=== PATIENT | female | born 1995 | race Caucasian/White ===

== ENCOUNTER 2025-03-27 17:15 | Emergency (ER) | payer OTHER, SELFPAY ==
--- NOTE | 2025-03-27 17:21 | ED_ITS ---
HPI - Headache General Chief Complaint: Headache Stated Complaint: headache Time Seen by Provider: 03/27/25 17:30 Source: patient Mode of arrival: ambulatory Limitations: no limitations History of Present Illness HPI Narrative: Cristela is a 30-year-old female patient presenting to the clinic today with complaints of a 3 day headache. She reports it is a pressure/band like pain across the forehead/temples. Does reports she has had some increase in stress as her has been gone over the weekend with [employer]. Has been taking Excedrin with some relief but the headaches return. Last dose of Excedrin was this morning. Currently rates her pain a 6/10. States she commonly gets headaches however this is not her usual headache. Does endorse some photosensitivity and has had 2 episodes of nausea and vomiting. Denies any URI symptoms or sore throat. Last menstrual period was December-patient has IUD. Related Data Home Medications ?Medication ?Instructions ?Recorded ?Confirmed ?Last Taken ?Type insulin aspart U-100 100 unit/mL 03/27/25 Unknown Hi story subcutaneous solution (Novolog U-100 Insulin aspart) Allergies Allergy/AdvReac Type Severity Reaction Status Date / Time No Known Allergies Allergy Verified 03/27/25 17:29 Review of Systems Review of Systems: Pertinent positives per HPI. Patient denies any fever, chills, rash, visual changes, dizziness, cough, runny nose, sore throat, shortness of breath, chest pain, palpitations, nausea, vomiting, diarrhea, constipation, abdominal pain, or any urinary issues. PMFSH Comments At the time of my signature, I reviewed and agree with the nursing past medical, surgical, social, and family history. There is no relevant family history pertinent to the patient complaint. Exam Narrative: General: Well-developed, well nourished, in no apparent distress Head: Normocephalic, atraumatic Eyes: Pupils equally round and reactive to light bilaterally, EOM intact, sclera and conjunctive clear, no discharge, lids normal Ears: TMs intact and clear, ear canals clear, no drainage, grossly hearing normal. Nose: Nares patent, no discharge, no inflammation, no sinus tenderness. Mouth: Oropharynx without lesions or masses, good dentition, MMM. Tongue midline, even rise and fall of uvula Neck: Supple, trachea midline, no enlargement of anterior or posterior cervical nodes, no thyroid masses or goiter palpable. Cardio: Regular rate and rhythm, s1 and s2 normal, no murmur appreciated. Resp: Clear to auscultation bilaterally anteriorly and posteriorly, no rhonchi, rales, wheezing or rubs Musculoskeletal: No deformity, non-tender to palpation, grossly normal range of motion, muscle strength strong and equal, peripheral pulse strong, no edema, no cyanosis, normal gait and station Neuro: Alert and oriented x4 with normal speech, no focal deficits, cranial nerves I through XII intact, muscle strength 5 out of 5, sensation intact bilaterally, negative Romberg test Course Course Emergency Course: Portions of this record may have been created with voice recognition software. Level of Care: Express Care Visit Vital Signs Vital signs: Vital Signs Temperature 36.6 C 03/27/25 17:24 Pulse Rate 101 H 03/27/25 17:24 Respiratory Rate 16 03/27/25 17:24 Blood Pressure 148/84 H 03/27/25 17:24 Pulse Oximetry 100 03/27/25 17:24 Temperature 36.6 C 03/27/25 17:24 Pulse Rate 101 H 03/27/25 17:24 Respiratory Rate 16 03/27/25 17:24 Blood Pressure 148/84 H 03/27/25 17:24 Pulse Oximetry 100 03/27/25 17:24 Vital signs reviewed MDM - Headache MDM Narrative Medical decision making narrative: At the time of visit patient is resting comfortably on the exam table. Patient appears to be nontoxic. Complaints of a 3 day headache. She reports it is a pressure/band like pain across the forehead/temples. Does reports she has had some increase in stress as her has been gone over the weekend with [employer]. Has been taking Excedrin with some relief but the headaches return. Last dose of Excedrin was this morning. Currently rates her pain a 6/10. States she commonly gets headaches however this is not her usual headache. Does endorse some photosensitivity and has had 2 episodes of nausea and vomiting. Denies any URI symptoms or sore throat. Last menstrual period was December-patient has IUD. No concern for . Toradol 60 mg IM ordered. On exam patient has pressure to the forehead/quaker area, neuro exam normal Medications: Toradol 60 mg IM given in the clinic today. Plan: I suspect patient likely has a tension headache. Supportive measures were discussed with the patient and they voiced understanding discharge inst ructions and agrees to treatment plan. Return precautions reviewed Differential Diagnosis Differential diagnosis: Likely migraine, tension headache, subarachnoid hemorrhage, headache, meningitis and sinusitis Discharge Plan Discharge Clinical Impression: Tension headache Patient Disposition: Home Condition: Stable Instructions: Antibiotic Form, Tension Headache (ED) Additional Instructions: Keep a tight control your blood sugars Go home and rest in a cool dark place Increase fluids and stay well hydrated May apply cool compress to your head Take some Benadryl 50mg by mouth when you get home May take Naproxen as directed for pain- may start taking in 8 hours after the Toradol injection May take ondansetron as needed for nausea/vomiting May take tylenol 1gm every 8 hours additionally as needed for pain. Go to the emergency room if you develop worsening of symptoms-worsening of headache, confusion, weakness, facial drooping, difficulty swallowing, drooling, slurred speech, chest pain, or shortness of breath. Patient Language: Danish Prescriptions: New naproxen 500 mg tablet 500 mg PO BID PRN (Reason: pain) 7 Days Qty: 14 0RF ondansetron 4 mg tablet,disintegrating 4 mg PO Q6H PRN (Reason: nausea and vomiting) 3 Days Qty: 12 0RF No Action insulin aspart U-100 [Novolog U-100 Insulin aspart] 100 unit/mL solution Follow-up/Referrals: PHYSICIAN,NITROCELLULOSE MAKER [Primary Care Provider, Internal Medicine] Time of Disposition: 17:46 Quality NIHSS Nursing Documentation ED NIHSS nursing documentation: reviewed/agree
[2025-03-27 17:24] VITALS: BP 148/84; PULSE 101; RESP 16; TEMP 36.6; O2SAT 100
[2025-03-27] MEDS: KETOROLAC (*BKC) 60 MG/2 ML VIAL IM (17:43)
== END 2025-03-27 18:14 | disposition home or self-care (01) ==
PROVIDERS: Emergency Provider Nurse Practitioner Family
DX: G44.209 Tension-type headache, unspecified, not intractable (principal); E11.9 Type 2 diabetes mellitus without complications; Z79.4 Long term (current) use of insulin; Z97.5 Presence of (intrauterine) contraceptive device
CPT/HCPCS: 96372; 99203; G0463; J1885